=== PATIENT | female | born 1930 | race Caucasian/White ===

== ENCOUNTER 2016-12-11 14:22 | Inpatient (IN) | payer MEDICARE, OTHER ==
[~2016-12-11] VITALS: Ht 152.4 cm; Wt 63.0 kg
[2016-12-11 14:48] VITALS: BP 148/84
[2016-12-11] MEDS ORDERED: QUETIAPINE FUMA50 MG ORAL (15:01)
[2016-12-11] MEDS ORDERED: LISINOPRIL10 MG ORAL (15:01)
[2016-12-11] MEDS ORDERED: MIRTAZAPINE15 M3 ORAL (15:01)
[2016-12-11] MEDS ORDERED: CARVEDILOL25 MG ORAL (15:01)
[2016-12-11] MEDS ORDERED: SYNTHROID125 MCG ORAL (15:01)
[2016-12-11] MEDS ORDERED: LEXAPRO10 MG ORAL (15:01)
[2016-12-11] MEDS ORDERED: DIOVAN320 MG ORAL (15:01)
[2016-12-11] MEDS ORDERED: NAMENDA10 MG ORAL (15:01)
[2016-12-11] MEDS ORDERED: DONEPEZIL HCL5 MG ORAL (15:01)
[2016-12-11 15:04] LABS: BASOPHILS % (AUTO) 1.1 % (0.0-2.0); EOSINOPHILS % (AUTO) 1.2 % (0.0-3.0); LYMPHOCYTES % (AUTO) 24.4 % (20.0-45.0); MEAN CORPUSCULAR HEMOGLOBIN 28.3 PG (27.0-31.0); MEAN CORPUSCULAR HGB CONC 32.9 G/DL (32.0-36.0); MEAN CORPUSCULAR VOLUME 86 FL (80-99); MEAN PLATELET VOLUME 7.1 FL (6.5-10.1); MONOCYTES % (AUTO) 4.4 % (1.0-10.0); NEUTROPHILS % (AUTO) 68.9 % (45.0-75.0); PLATELET COUNT 269 K/UL (150-450); RED BLOOD COUNT 4.78 M/UL (4.20-5.40); WHITE BLOOD COUNT 7.9 K/UL (4.8-10.8)
--- NOTE | 2016-12-11 15:12 | Emergency Room Report ---
History of Present Illness General Chief Complaint: Pain Source: Patient, Caregiver, PMD Present Illness HPI [id number] sent by PMD DR Guardado for admission for ?encephalopathy Daughter endorses patient lives alone with 24-caregiver Doesnt sleep at night, wallks around, yelling/screaming History of frequent falls Known dementia ?anxiety Hypothyroid on synthroid Patient herself denies pain, chest pain, SOB, abd pain, headache, fever/chills Allergies: Coded Allergies: CORTISONE (Verified Allergy, Unknown, 12/11/16) LATEX (Verified Allergy, Unknown, 12/11/16) Patient History Past Medical History: dementia, other - hypothyroid Past Surgical History: none Pertinent Family History: none Social History: Denies: alcohol use, drug use, smoking Now: No Immunizations: UTD Reviewed Nursing Documentation: PMH: Agreed, PSxH: Agreed Nursing Documentation-PMH Past Medical History: No History, Except For Hx Cardiac Problems: No - HYPOTHYROIDISIM Hx Hypertension: Yes Hx Pacemaker: No - RA Hx Neurological Problems: Yes - DEMENTIA Review of Systems All Other Systems: negative except mentioned in HPI Physical Exam Vital Signs Date Time Temp Pulse Resp B/P Pulse Ox O2 Delivery O2 Flow Rate FiO2 12/11/16 14:30 98.6 76 20 135/84 96 Room Air Sp02 EP Interpretation: reviewed, normal General Appearance: normal inspection, well appearing, no apparent distress, alert, GCS 15, non-toxic, other - Well appearing elderly lady sitting upright in stretcher Head: normocephalic, atraumatic Eyes: bilateral eye EOMI, bilateral eye PERRL ENT: normal ENT inspection, hearing grossly normal, normal voice Neck: normal inspection, full range of motion, supple, no bony tend Respiratory: normal inspection, lungs clear, normal breath sounds, no respiratory distress, no retraction, no wheezing Cardiovascular #1: regular rate, rhythm, no edema Gastrointestinal: normal inspection, normal bowel sounds, non tender, soft, no guarding, no hernia Genitourinary: no CVA tenderness Musculoskeletal: normal inspection, back normal, normal range of motion, Sydnee' s Sign negative Neurologic: normal inspection, alert, oriented x3, responsive, 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 I attest that this information is true, accurate and complete to the best of my knowledge. I understand that any falsification, omission, or concealment of material fact may subject me to administrative, civil, or criminal liability. This patient warrants hospital admission for extreme of age and has a condition that cannot be treated as outpatient. Diagnostic Impression: Primary Impression: Dementia Qualified Codes: F03.90 - Unspecified dementia without behavioral disturbance Additional Impressions: UTI (urinary tract infection) Qualified Codes: N30.01 - Acute cystitis with hematuria Altered mental status Qualified Codes: R41.82 - Altered mental status, unspecified ER Course H&H stable. No leuks. No metabolic abnormalities CXR: No PNA Patient wouldnt sit for CT head UA: + for UTI IV Rocephin given in ED Possibly UTI acutely contributing to worsening baseline dementia/mental status Otherwise not systemically ill/septic or requiring additional workup currently. Endorsed to Dr Guardado for med/surg admit at 340pm EKG Diagnostic Results Rate: other - 1st degree AV block, LAFB Rhythm: NSR ST Segments: no acute changes ASA given to the pt in ED: No Rhythm Strip Diag. Results EP Interpretation: yes Rate: 88 Rhythm: NSR, no PVC's, no ectopy Chest X-Ray Diagnostic Results Chest X-Ray Diagnostic Results : Chest X-Ray Ordered: Yes # of Views/Limited/Complete: 1 View Indication: Other - weakness EP Interpretation: Yes Interpretation: no consolidation, no effusion, no pneumothorax, no acute cardiopulmonary disease Impression: No acute disease Interpreting ER Provider: Dr Sandro Mcnamara MD Last Vital Signs Date Time Temp Pulse Resp B/P Pulse Ox O2 Delivery O2 Flow Rate FiO2 12/11/16 14:48 98.6 81 18 148/84 96 Room Air Status: improved Disposition: ADMITTED INPATIENT Condition: Serious Referrals: ASH GUARDADO (PCP) SANDRO MCNAMARA M.D. Dec 11, 2016 15:12
--- NOTE | 2016-12-11 15:18 | Diagnostic Imaging Report ---
Indications: Of breath Technique: Portable AP chest Findings: Comparison: None Inspiratory effort is suboptimal. Thoracic kyphosis is exaggerated. Cardiac silhouette enlarged. Pulmonary vasculature within normal limits. Mild crowding of bronchovascular markings medial right lung base. Visualized portions of lungs and pleura are otherwise clear. Thoracic aorta calcified and elongated. Chronic appearing contour deformity right humeral head. Right glenohumeral joint narrowed with marginal osteophyte rotation. IMPRESSION: Limited exam due to technical factors described Right lung base bronchovascular prominence most likely compressive in nature. Focal infiltrate not excludable. Cardiomegaly Aortosclerosis and probable chronic hypertensive change Right glenohumeral degenerative arthropathy Chronic appearing right humeral head deformity, may be degenerative or posttraumatic Exaggerated thoracic kyphosis
[2016-12-11 15:22] LABS: TROPONIN I < 0.30 ng/mL (<=0.30)
[2016-12-11 15:25] LABS: ALANINE AMINOTRANSFERASE 11 U/L (3-33); ALBUMIN/GLOBULIN RATIO 1.3 (1.0-2.7); ANION GAP 13 (5-15); ASPARTATE AMINO TRANSFERASE 19 U/L (5-40); CARBON DIOXIDE 26 mEQ/L (20-30); CHLORIDE 100 mEQ/L (98-107); CREATININE 0.8 mg/dL (0.5-0.9); HEMOLYSIS 2; POTASSIUM 3.9 mEQ/L (3.4-4.9); SODIUM 139 mEQ/L (135-145); TOTAL PROTEIN 7.4 g/dL (6.6-8.7)
[2016-12-11 15:36] LABS: CKMB 2.4 ng/mL (< 3.8)
[2016-12-11 16:21] LABS: APPEARANCE,URINE CLEAR; KETONES,URINE NEGATIVE (NEGATIVE); LEUKOCYTE ESTERASE ,URINE 2+ (NEGATIVE); NITRITE,URINE NEGATIVE (NEGATIVE); PH,URINE 7 (4.5-8.0); PROTEIN,URINE 1+ (NEGATIVE); UROBILINOGEN,URINE NORMAL MG/DL (0.0-1.0)
[2016-12-11] MEDS ORDERED: cefTRIAXone 1 GM in D5W 55 ML IVPB ONE (16:45)
[2016-12-11 16:48] LABS: BACTERIA,URINE FEW /HPF; SQUAMOUS EPITHELIAL CELL,UR OCCASIONAL /LPF (NONE/OCC)
[2016-12-11 16:53] VITALS: BP 128/108
[2016-12-11] MEDS: Lisinopril 20mg tab ORAL SCH (19:30)
[2016-12-11 19:36] VITALS: BP 142/111
[2016-12-11] MEDS ORDERED: Haloperidol 5mg/ml Inj IVPB PRN (20:45)
[2016-12-11] MEDS ORDERED: Haloperidol Lactate 2 MG in D5W 55 ML IVPB PRN (21:00)
[2016-12-11] MEDS: Carvedilol 25mg Tab ORAL SCH (21:00)
[2016-12-11] MEDS: Donepezil 5mg Tab ORAL SCH (21:00)
[2016-12-11] MEDS: Memantine 10mg tab ORAL SCH (21:00)
[2016-12-12] VITALS (7 sets, daily range): BP systolic 134–163; BP diastolic 57–111
--- NOTE | 2016-12-12 08:10 | History & Physical ---
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
[2016-12-12] MEDS: Donepezil 5mg Tab ORAL SCH (08:45)
[2016-12-12] MEDS: Memantine 10mg tab ORAL SCH ×2 (08:45→17:29)
[2016-12-12] MEDS: Lisinopril 20mg tab ORAL SCH (08:45)
[2016-12-12] MEDS: Carvedilol 25mg Tab ORAL SCH ×2 (08:46→20:56)
[2016-12-12] MEDS: Lactobacillus-GG tablet ORAL SCH ×2 (09:00→17:30)
[2016-12-12] MEDS ORDERED: Irbesartan 150mg tablet ORAL SCH (09:00)
[2016-12-12] MEDS: ceFAZolin sod 1 GM in D5W 55 ML IVPB SCH ×2 (10:17→20:57)
--- NOTE | 2016-12-12 18:14 | Neurology Progress Note ---
Objective Physical Exam Last Vital Signs Date Time Temp Pulse Resp B/P Pulse Ox O2 Delivery O2 Flow Rate FiO2 12/12/16 15:50 97.5 86 19 144/57 Room Air 12/12/16 12:00 93 Impression/Recommendations Recommendations #[id number] TENA CADET Dec 12, 2016 18:14
--- NOTE | 2016-12-12 19:26 | Cardiology Progress Note ---
Assessment/Plan Assessment/Plan full note dicted dc avapro yoan lisinopril add lwo dose [facility] [id number] Objective Last 24 Hour Vital Signs Date Time Temp Pulse Resp B/P Pulse Ox O2 Delivery O2 Flow Rate FiO2 12/12/16 15:50 97.5 86 19 144/57 Room Air 12/12/16 12:00 98.1 78 18 143/95 93 Room Air 12/12/16 08:46 82 134/91 12/12/16 08:45 134/91 12/12/16 08:45 134/91 12/12/16 08:00 97.9 82 20 134/91 92 Room Air 12/12/16 04:15 73 152/102 12/12/16 04:00 97.8 70 20 163/101 Room Air 12/12/16 00:00 97.7 100 20 157/111 93 Room Air 12/11/16 19:36 96.5 86 20 142/111 93 Room Air Intake and Output 12/11/16 12/12/16 19:00 07:00 Intake Total 0 ml 55 ml Output Total 0 ml Balance 0 ml 55 ml Intake Oral 0 ml IV Total 55 ml Output Stool Total 0 ml # Voids 1 3 JULIANE SAUNDERS Dec 12, 2016 19:26
--- NOTE | 2016-12-12 20:01 | Wound Care Consultation ---
Wound Assessment Wound Assessment : Wound Number: #1 Wound Present on Admission: Yes New Wound: No Status Change of Wound: No Wound Location Body Site: perianal Wound Type: chemical burn Hitesh Test: Does not Hitesh Percent of Wound [place]/Red: 100 Wound Drainage Amount: None Wound Drainage Odor: None/Absent Tissue Surrounding Wound: Erythemic Wound General Appearance: Reddened Wound Comment #1 Chemical burn on perianal area Recommendation -Local wound care per protocol -Keep clean and dry -Turn and reposition -Offload both heels -Heel protector on both heels -Assess and f/u accordingly for any changes ESTER JIMÉNEZ RN Dec 12, 2016 20:01
[2016-12-12] MEDS ORDERED: Tubing IV Secondary IV ONE (22:20)
[2016-12-12] MEDS ORDERED: NS 275ml ONE (22:20)
[2016-12-13] VITALS: BP 125/82
--- NOTE | 2016-12-13 | Consultation ---
DATE OF CONSULTATION: 12/12/2016 CARDIOLOGY CONSULTATION CONSULTING PHYSICIAN: Olegario Solomon M.D. REFERRING PHYSICIAN: Efrain Guardado M.D. HISTORY OF PRESENT ILLNESS: This is an elderly female with history of several medical problems, who was admitted to the hospital because of agitation. According to the emergency room physician's note, the patient was noted to have possibly some encephalopathy. Daughter indicated that the patient lives alone with 24-hour care. She does not sleep at night, walks around apparently yelling and screaming. She has a history of frequent falls, unknown dementia, and questionable anxiety. The patient is admitted to the hospital. She does not really have any chest pain or shortness of breath. On questioning, she denies any palpitations or dizziness at this time. However, it is not clear to me how much what she states is actually trustable for accuracy. PAST MEDICAL HISTORY: Her past medical history according to [facility] records includes history of CVA, hypothyroidism, encephalopathy, hypertension, osteoarthritis, lymphedema, tremor, hemorrhagic cerebral hemisphere, agitation, and moderate vascular neoplasm disorder. FAMILY HISTORY: One daughter, healthy. Three sons, one is obese. ALLERGIES: None. REVIEW OF SYSTEMS: Gastrointestinal: She denies. Genitourinary: She denies. Pulmonary: She denies. Constitutional: She denies. Neurological: She denies. PHYSICAL EXAMINATION: VITAL SIGNS: Blood pressure is 152/102 down to 144/57, temperature is 97.5, and heart rate is 96. GENERAL: Physical examination shows her to be an elderly female, in no respiratory distress. She is awake and responsive. She has some twitching in the left eye. NECK: Supple. LUNGS: Clear to auscultation and percussion. CARDIAC: S1 is normal. S2 is normal. Regular rate and rhythm. No heaves, thrills, or gallops noted. ABDOMEN: Soft and nontender. Positive bowel sounds. EXTREMITIES: There is no clubbing, cyanosis, or edema. NEUROLOGIC: She is awake, alert, responsive. At the moment, she is not agitated. LABORATORY AND DIAGNOSTIC DATA: White count 7.9, hemoglobin 13.5, and platelet count 269,000. Sodium is 139, potassium 3.9, chloride 100, bicarbonate 26, BUN 20, creatinine is 0.8, and glucose of 148. Troponin less than 0.3. TSH of 1.4. Urinalysis 2 to 4 RBCs, 2 to 4 WBCs, and 2+ leukocyte esterase. Imaging included a chest x-ray that shows right lung base bronchovascular prominence, likely compressive atelectasis, focal infiltrate not excluded; cardiomegaly; chronic glenohumeral degenerative arthropathy; and chronic appearing right humeral head deformity. ASSESSMENT AND PLAN: 1. Hypertension. 2. Dementia. 3. Delirium. 4. History of cerebrovascular accident with intracranial bleeding previously. Dr. Guardado, this patient was seen in cardiac consultation. The patient's blood pressure a bit on the on high side. She is getting Coreg 12.5 mg twice daily and Avapro 300 mg daily. Lisinopril was also added, although the combination of Avapro and lisinopril probably not supported. We will start the patient on some amlodipine instead of Avapro and add increasing doses as become necessary. She appears to be calm for the time being. Olegario Solomon M.D. DR: QUINCY JOB#: [id number] CC:
--- NOTE | 2016-12-13 02:15 | Consultation ---
DATE OF CONSULTATION: 12/12/2016 NEUROLOGICAL CONSULTATION REQUESTING PHYSICIAN: Efrain Guardado M.D. HISTORY OF PRESENT ILLNESS: The patient is an 86-year-old female seen in neurological consultation to evaluate progressive changes in mental status. Apparently, the patient has a history of preexistent dementia, now presenting with increasing confusion and disorientation. The patient was unable to provide with any history. This was compiled from medical records. Note that the patient lives at home in apartment where she has a 24-hour caregiver. She became increasingly restless, agitated, yelling, screaming with insomnia, walking around at nighttime. Her gait became quite unstable. She has frequent falls. Following admission, vital signs remained stable. She was afebrile. Her chest x-ray revealed no acute abnormality. CAT scan was attempted, but the patient was not cooperative. Lab work included normal electrolyte panel including normal TSH and troponin. Urinalysis with 2+ leukocyte esterase and 1+ protein. Her chest x-ray, limited examination, right lung base bronchovascular prominence, cardiomegaly, atherosclerosis, and probably chronic hypertensive changes, right glenohumeral degenerative arthropathy noted, and thoracic scoliosis. According to treating physician, the patient has a previous stroke including hemorrhagic strokes, treated for hypertension, dementia, degenerative joint disease, hyperlipidemia, and hypothyroidism. Following admission to [facility], there was no evidence of paroxysmal activity. The patient remained in bed with a sitter being present, reported to aid well. She stays still with no evidence of agitation, although last night she was described as restless and confused. MEDICATIONS: Treatment prior to admission included donepezil 5 mg daily, Carvedilol, Lexapro 10 mg, Synthroid, lisinopril, Namenda 10 mg b.i.d., Remeron at bedtime, quetiapine 25 mg t.i.d., and valsartan. ALLERGIES: Cortisone and . SOCIAL HISTORY: Lives at home with a caregiver. FAMILY HISTORY: Noncontributory. REVIEW OF SYSTEMS: Unable to obtain due to the patient's status, who was quite confused. PHYSICAL EXAMINATION: GENERAL: The patient is a well-developed and well-nourished female, not in acute distress, lying comfortably in bed. HEENT: Head, normocephalic. There are posttraumatic scars in the right frontal region. Left eye corneal cloudiness. NECK: Rigid in all directions. MUSCULOSKELETAL: Puffiness in both hands and feet. Arthritic changes in both knees. Peripheral pulses 1+ symmetric. MENTAL STATUS: On admission, . Denies having chest pains, shortness of breath, or abdominal pain. No headache. No fever or chills. Currently, she is fully awake, follows commands, yes and no, gave her name but not the address or place. CRANIAL NERVE II: Pupils are 3 mm responding to light and accommodation. Extraocular movement full range. CRANIAL NERVE V: Normal corneal responses. CRANIAL NERVE VII: Slight droop, left nasolabial fold. CRANIAL NERVE VIII: Decreased hearing. CRANIAL NERVE IX THROUGH XII: Tongue is in midline. Normal gag response. MOTOR EXAMINATION: Diffuse rigidity in both upper and lower extremities. Resisting with a good strength. Deep tendon reflexes depressed bilaterally. Plantar response is mute. SENSORY EXAMINATION: Withdrawing to pin stimulation, both upper and lower extremities. Gait not tested. IMPRESSION: 1. This is an 86-year-old female with extensive cerebrovascular disease, multiple strokes presenting with vascular dementia with behavioral abnormalities. 2. Hypertension. 3. Hypothyroidism. 4. Urinary tract infection. RECOMMENDATION: Continue with the current regimen including IV fluids and antibiotics, hydration. Use sedatives as per Psychiatry including Seroquel. She is on Synthroid and also Namenda with Aricept and antidepressants, Remeron and Lexapro, and p.r.n. Haldol. Continue with the current treatment including aspirin and statins. Get a geriatric psychiatry evaluation to adjust psychotropics properly. Encourage the patient sitting in a chair. PT and OT for mobility protocol. Ruel Justin M.D. DR: TONY JOB#: [id number] CC:
[2016-12-13 07:58] VITALS: BP 120/83
[2016-12-13] MEDS: Lisinopril 20mg tab ORAL SCH (08:51)
[2016-12-13] MEDS: Memantine 10mg tab ORAL SCH ×2 (08:51→17:29)
[2016-12-13] MEDS: Carvedilol 25mg Tab ORAL SCH ×2 (08:51→20:27)
[2016-12-13] MEDS: Lactobacillus-GG tablet ORAL SCH ×2 (08:51→17:29)
[2016-12-13] MEDS: Donepezil 5mg Tab ORAL SCH (08:51)
[2016-12-13] MEDS: ceFAZolin sod 1 GM in D5W 55 ML IVPB SCH ×2 (09:02→22:49)
[2016-12-13] MEDS ORDERED: NS 550ML IV ONE (09:25)
--- NOTE | 2016-12-13 11:00 | Cardiology Progress Note ---
Assessment/Plan Assessment/Plan 1. Hypertension. 2. Dementia. 3. Delirium. 4. History of ich calm now but agitated earlier per staff tried to get out of bed removed iv bp seem fine watch off avapro on lisinopril adn norvasc Subjective Cardiovascular: Denies: chest pain, lightheadedness, palpitations Gastrointestinal/Abdominal: Denies: nausea Genitourinary: Denies: burning Objective Last 24 Hour Vital Signs Date Time Temp Pulse Resp B/P Pulse Ox O2 Delivery O2 Flow Rate FiO2 12/13/16 08:51 84 120/83 12/13/16 08:51 120/83 12/13/16 08:51 84 120/83 12/13/16 07:58 98.2 84 19 120/83 92 Room Air 12/13/16 00:00 98.2 89 18 125/82 97 Room Air 12/12/16 21:00 97.9 89 18 140/92 93 Room Air 12/12/16 20:56 89 140/92 12/12/16 15:50 97.5 86 19 144/57 Room Air 12/12/16 12:00 98.1 78 18 143/95 93 Room Air General Appearance: alert Neck: no JVD Rhythm: NSR Cardiovascular: normal rate, regular rhythm Respiratory/Chest: lungs clear Abdomen: normal bowel sounds, non tender Extremities: no swelling Intake and Output 12/12/16 12/13/16 19:00 07:00 Intake Total 180 ml Balance 180 ml Intake Oral 180 ml # Voids 3 NICKYJULIANE Dec 13, 2016 11:00
[2016-12-13 11:39] VITALS: BP 124/96
[2016-12-13 15:43] VITALS: BP 131/80
--- NOTE | 2016-12-13 16:37 | Consultation ---
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 the pt is on 1:1. the pt is pw waxing and waning of conciousness the pt has been agitated. the pt was unable to provide hx Allergies: Coded Allergies: CORTISONE (Verified Allergy, Unknown, 12/11/16) LATEX (Verified Allergy, Unknown, 12/11/16) Medication History Scheduled Carvedilol* (Carvedilol*), 25 MG ORAL EVERY 12 HOURS, (Reported) Donepezil Hcl* (Donepezil Hcl*), 5 MG ORAL DAILY, (Reported) Escitalopram Oxalate* (Lexapro*), 10 MG ORAL DAILY, (Reported) Levothyroxine Sodium* (Synthroid*), 137 MCG ORAL DAILY, (Reported) Lisinopril* (Lisinopril*), 20 MG ORAL DAILY, (Reported) Memantine Hcl* (Namenda*), 10 MG ORAL BID, (Reported) Mirtazapine* (Mirtazapine*), 30 MG ORAL BEDTIME, (Reported) Quetiapine Fumarate* (Quetiapine Fumarate*), 25 MG ORAL TID, (Reported) Valsartan (Diovan), 320 MG ORAL DAILY, (Reported) Patient History History Provided By: Patient, Medical Record, PMD Healthcare decision maker Resuscitation status Full Code Advanced Directive on File Past Medical/Surgical History Past Medical/Surgical History: (1) Acute encephalopathy (2) UTI (urinary tract infection) (3) Dementia (4) Altered mental status Review of Systems Psychiatric: Reports: anxiety, depressed feelings, emotional problems, prior hx Physical Exam General Appearance: alert, confused Neurologic: disoriented, unresponsiveness, depressed affect Last 24 Hour Vital Signs Date Time Temp Pulse Resp B/P Pulse Ox O2 Delivery O2 Flow Rate FiO2 12/13/16 15:43 98.1 79 18 131/80 92 Room Air 12/13/16 11:39 98.2 84 18 124/96 93 Room Air 12/13/16 08:51 84 120/83 12/13/16 08:51 120/83 12/13/16 08:51 84 120/83 12/13/16 07:58 98.2 84 19 120/83 92 Room Air 12/13/16 00:00 98.2 89 18 125/82 97 Room Air 12/12/16 21:00 97.9 89 18 140/92 93 Room Air 12/12/16 20:56 89 140/92 Intake and Output 12/12/16 12/13/16 19:00 07:00 Intake Total 180 ml Balance 180 ml Intake Oral 180 ml # Voids 3 Height (Feet): 5 Weight (Pounds): 139 Medications Current Medications Medications (Trade) Dose Ordered Sig/Smith Route PRN Reason Start Time Stop Time Status Last Admin Dose Admin Acetaminophen (Tylenol) 650 mg Q4H PRN ORAL Mild Pain 12/11/16 18:45 01/10/17 18:44 Amlodipine Besylate (Norvasc) 2.5 mg DAILY ORAL 12/13/16 09:00 01/12/17 08:59 12/13/16 08:51 Carvedilol (Coreg) 25 mg EVERY 12 HOURS ORAL 12/11/16 21:00 01/10/17 20:59 12/13/16 08:51 Cefazolin Sodium/ Dextrose (Ancef/D5W) 55 ml @ 110 mls/hr Q12HR@1000,2200 IVPB 12/12/16 10:00 12/19/16 09:59 12/13/16 09:02 Clotrimazole (Lotrimin) 1 applic EVERY 12 HOURS TOPIC 12/12/16 21:30 01/11/17 21:29 12/13/16 08:52 Donepezil HCl (Aricept) 5 mg DAILY ORAL 12/11/16 21:00 01/10/17 20:59 12/13/16 08:51 Escitalopram Oxalate (Lexapro) 10 mg DAILY ORAL 12/12/16 09:00 01/11/17 08:59 12/13/16 08:51 Lactobacillus Acidophilus (Culturelle) 1 tab TWICE A DAY ORAL 12/12/16 09:00 01/11/17 08:59 12/13/16 08:51 Levothyroxine Sodium (Synthroid) 50 mcg ACBREAKFAST ORAL 12/12/16 06:30 01/11/17 06:29 12/13/16 06:04 Levothyroxine Sodium 88 mcg 88 mcg ACBREAKFAST ORAL 12/12/16 06:30 01/11/17 06:29 12/13/16 06:04 Lisinopril (Prinivil) 20 mg DAILY ORAL 12/11/16 19:00 01/10/17 18:59 12/13/16 08:51 Memantine (Namenda) 10 mg BID ORAL 12/11/16 21:00 01/10/17 20:59 12/13/16 08:51 Mirtazapine (Remeron) 30 mg BEDTIME ORAL 12/11/16 21:00 01/10/17 20:59 12/12/16 20:56 Quetiapine Fumarate (SEROquel) 25 mg TID ORAL 12/11/16 21:00 01/10/17 20:59 12/13/16 13:20 Assessment/Plan Status Narrative Deliruim -seroquel 12.5 tid lexapro VeroniqueqMuna Barreto M.D. Dec 13, 2016 16:37
--- NOTE | 2016-12-13 17:02 | General Progress Note ---
Assessment/Plan Status Narrative delirium encepahlopahty pyuria hypertenison lymphedema deg disc disease dementia plan antibioti c dc plannign to [facility] not home. [place]. Subjective Date patient seen: Dec 13, 2016 Time patient seen: 17:01 Constitutional: Reports: no symptoms HEENT: Reports: no symptoms Cardiovascular: Reports: no symptoms Respiratory: Reports: no symptoms Allergies: Coded Allergies: CORTISONE (Verified Allergy, Unknown, 12/11/16) LATEX (Verified Allergy, Unknown, 12/11/16) Objective Last 24 Hour Vital Signs Date Time Temp Pulse Resp B/P Pulse Ox O2 Delivery O2 Flow Rate FiO2 12/13/16 15:43 98.1 79 18 131/80 92 Room Air 12/13/16 11:39 98.2 84 18 124/96 93 Room Air 12/13/16 08:51 84 120/83 12/13/16 08:51 120/83 12/13/16 08:51 84 120/83 12/13/16 07:58 98.2 84 19 120/83 92 Room Air 12/13/16 00:00 98.2 89 18 125/82 97 Room Air 12/12/16 21:00 97.9 89 18 140/92 93 Room Air 12/12/16 20:56 89 140/92 Intake and Output 12/12/16 12/13/16 19:00 07:00 Intake Total 180 ml Balance 180 ml Intake Oral 180 ml # Voids 3 Height (Feet): 5 Weight (Pounds): 139 General Appearance: WD/WN Neck: supple Cardiovascular: normal rate, regular rhythm, no JVD Respiratory/Chest: lungs clear Abdomen: soft ASH POE Dec 13, 2016 17:02
[2016-12-13 20:00] VITALS: BP 107/61
--- NOTE | 2016-12-13 21:30 | Progress Note ---
DATE: 12/13/2016 SUBJECTIVE: The patient is doing well. No behavior issues. The patient is calm and cooperative. The patient is still confused, disoriented, presenting waxing and waning consciousness. MENTAL STATUS EXAMINATION: The patient is confused, disoriented. Mood is neutral. Affect is flat. Congruent with mood. Thought processes, there is a paucity of thought content. Cognition is impaired. ASSESSMENT: Delirium due to general medical condition. PLAN: 1. The patient will be continued with Seroquel. We will decrease it to 12.5 mg twice a day. 2. We will continue to follow and readjust the medications. Muna Manriquez M.D. DR: CHETNA JOB#: [id number] CC:
[2016-12-13 23:54] VITALS: BP 118/80
[2016-12-14 04:00] VITALS: BP 141/82
[2016-12-14 08:09] VITALS: BP 114/64
[2016-12-14] MEDS: Carvedilol 25mg Tab ORAL SCH ×2 (08:11→20:47)
[2016-12-14] MEDS: Donepezil 5mg Tab ORAL SCH (08:11)
[2016-12-14] MEDS: Lisinopril 20mg tab ORAL SCH (08:12)
[2016-12-14] MEDS: Memantine 10mg tab ORAL SCH ×2 (08:13→17:23)
[2016-12-14] MEDS: Lactobacillus-GG tablet ORAL SCH ×2 (08:13→17:23)
[2016-12-14] MEDS: ceFAZolin sod 1 GM in D5W 55 ML IVPB SCH ×2 (09:40→22:12)
--- NOTE | 2016-12-14 09:48 | Cardiology Progress Note ---
Assessment/Plan Assessment/Plan 1. Hypertension. 2. Dementia. 3. Delirium. 4. History of ich calm now but agitated earlier per staff tried to get out of bed removed iv bp seem fine off avapro on lisinopril sanjana das dc palnnign per dr che agree with snf Subjective Cardiovascular: Denies: chest pain, lightheadedness Respiratory: Denies: shortness of breath Gastrointestinal/Abdominal: Denies: abdominal pain Genitourinary: Denies: burning Objective Last 24 Hour Vital Signs Date Time Temp Pulse Resp B/P Pulse Ox O2 Delivery O2 Flow Rate FiO2 12/14/16 08:12 70 114/64 12/14/16 08:12 114/64 12/14/16 08:11 70 114/64 12/14/16 08:09 97.9 70 18 114/64 95 Room Air 12/14/16 04:00 97.5 97 18 141/82 92 Room Air 12/13/16 23:54 98.1 85 18 118/80 93 Room Air 12/13/16 20:27 87 107/61 12/13/16 20:00 98.2 87 18 107/61 91 Room Air 12/13/16 15:43 98.1 79 18 131/80 92 Room Air 12/13/16 11:39 98.2 84 18 124/96 93 Room Air General Appearance: no apparent distress Cardiovascular: normal rate, regular rhythm Respiratory/Chest: lungs clear, normal breath sounds Abdomen: non tender, soft Extremities: no swelling Intake and Output 12/13/16 12/14/16 19:00 07:00 Intake Total 110 ml 390 ml Balance 110 ml 390 ml Intake Oral 280 ml IV Total 110 ml 110 ml # Voids 3 JULIANE SAUNDERS Dec 14, 2016 09:48
[2016-12-14 12:02] VITALS: BP 128/66
[2016-12-14] MEDS ORDERED: Tubing IV Secondary IV ONE (15:02)
[2016-12-14] MEDS ORDERED: NS 275ml ONE (15:02)
[2016-12-14 16:00] VITALS: BP 146/95
--- NOTE | 2016-12-14 17:20 | Cardiology Report ---
APPROVED REPORT EKG Measurement Heart [id number] Sinus rhythm with marked sinus arrhythmia with 1st degree AV block Pulmonary disease pattern Left anterior fascicular block Minimal voltage criteria for LVH, may be normal variant Abnormal ECG
--- NOTE | 2016-12-14 17:56 | General Progress Note ---
Assessment/Plan Status Narrative pyuria urin3 culture was not send uti on ancef doign well plan dc to [facility]. Subjective Date patient seen: Dec 14, 2016 Constitutional: Reports: no symptoms HEENT: Reports: no symptoms Allergies: Coded Allergies: CORTISONE (Verified Allergy, Unknown, 12/11/16) LATEX (Verified Allergy, Unknown, 12/11/16) Objective Last 24 Hour Vital Signs Date Time Temp Pulse Resp B/P Pulse Ox O2 Delivery O2 Flow Rate FiO2 12/14/16 16:00 97.7 75 18 146/95 96 Room Air 12/14/16 12:02 97.7 79 18 128/66 94 Room Air 12/14/16 08:12 70 114/64 12/14/16 08:12 114/64 12/14/16 08:11 70 114/64 12/14/16 08:09 97.9 70 18 114/64 95 Room Air 12/14/16 04:00 97.5 97 18 141/82 92 Room Air 12/13/16 23:54 98.1 85 18 118/80 93 Room Air 12/13/16 20:27 87 107/61 12/13/16 20:00 98.2 87 18 107/61 91 Room Air Intake and Output 12/13/16 12/14/16 19:00 07:00 Intake Total 110 ml 390 ml Balance 110 ml 390 ml Intake Oral 280 ml IV Total 110 ml 110 ml # Voids 3 Height (Feet): 5 Weight (Pounds): 139 General Appearance: WD/WN Neck: non-tender Cardiovascular: normal rate, regular rhythm, no JVD Respiratory/Chest: lungs clear Abdomen: soft ASH POE Dec 14, 2016 17:56
--- NOTE | 2016-12-14 18:54 | Geriatric Progress Note ---
Assessment/Plan Assessment/Plan stable -no changes Discussed with: patient Subjective Mood/Memory: Reports: anxiety, depressed feelings, emotional problems Sleep: Reports: sleeps well Geriatric Geriatric Last 24 Hour Vital Signs Date Time Temp Pulse Resp B/P Pulse Ox O2 Delivery O2 Flow Rate FiO2 12/14/16 16:00 97.7 75 18 146/95 96 Room Air 12/14/16 12:02 97.7 79 18 128/66 94 Room Air 12/14/16 08:12 70 114/64 12/14/16 08:12 114/64 12/14/16 08:11 70 114/64 12/14/16 08:09 97.9 70 18 114/64 95 Room Air 12/14/16 04:00 97.5 97 18 141/82 92 Room Air 12/13/16 23:54 98.1 85 18 118/80 93 Room Air 12/13/16 20:27 87 107/61 12/13/16 20:00 98.2 87 18 107/61 91 Room Air Intake and Output 12/13/16 12/14/16 19:00 07:00 Intake Total 110 ml 390 ml Balance 110 ml 390 ml Intake Oral 280 ml IV Total 110 ml 110 ml # Voids 3 Current Medications Medications (Trade) Dose Ordered Sig/Smith Route PRN Reason Start Time Stop Time Status Last Admin Dose Admin Acetaminophen (Tylenol) 650 mg Q4H PRN ORAL Mild Pain 12/11/16 18:45 01/10/17 18:44 Amlodipine Besylate (Norvasc) 2.5 mg DAILY ORAL 12/13/16 09:00 01/12/17 08:59 12/14/16 08:12 Carvedilol (Coreg) 25 mg EVERY 12 HOURS ORAL 12/11/16 21:00 01/10/17 20:59 12/14/16 08:11 Cefazolin Sodium/ Dextrose (Ancef/D5W) 55 ml @ 110 mls/hr Q12HR@1000,2200 IVPB 12/12/16 10:00 12/19/16 09:59 12/14/16 09:40 Clotrimazole (Lotrimin) 1 applic EVERY 12 HOURS TOPIC 12/12/16 21:30 01/11/17 21:29 12/14/16 08:13 Donepezil HCl (Aricept) 5 mg DAILY ORAL 12/11/16 21:00 01/10/17 20:59 12/14/16 08:11 Escitalopram Oxalate (Lexapro) 10 mg DAILY ORAL 12/12/16 09:00 01/11/17 08:59 12/14/16 08:12 Lactobacillus Acidophilus (Culturelle) 1 tab TWICE A DAY ORAL 12/12/16 09:00 01/11/17 08:59 12/14/16 17:23 Levothyroxine Sodium (Synthroid) 50 mcg ACBREAKFAST ORAL 12/12/16 06:30 01/11/17 06:29 12/14/16 05:55 Levothyroxine Sodium 88 mcg 88 mcg ACBREAKFAST ORAL 12/12/16 06:30 01/11/17 06:29 12/14/16 05:54 Lisinopril (Prinivil) 20 mg DAILY ORAL 12/11/16 19:00 01/10/17 18:59 12/14/16 08:12 Memantine (Namenda) 10 mg BID ORAL 12/11/16 21:00 01/10/17 20:59 12/14/16 17:23 Mirtazapine (Remeron) 30 mg BEDTIME ORAL 12/11/16 21:00 01/10/17 20:59 12/13/16 20:27 Quetiapine Fumarate (SEROquel) 12.5 mg TID ORAL 12/13/16 18:00 01/12/17 17:59 12/14/16 17:23 Height (Feet): 5 Weight (Pounds): 139 General Appearance: well groomed, no apparent distress, mild distress, thin Psychiatric Behavior: uncooperative Orientation: disoriented Affect: flat Muna Manriquez M.D. Dec 14, 2016 18:54
[2016-12-14 20:00] VITALS: BP 152/92
[2016-12-15] VITALS: BP 145/77
[2016-12-15 04:01] VITALS: BP 142/93
[2016-12-15 08:05] VITALS: BP 137/95
[2016-12-15] MEDS: Donepezil 5mg Tab ORAL SCH (08:19)
[2016-12-15] MEDS: Memantine 10mg tab ORAL SCH ×2 (08:20→18:51)
[2016-12-15] MEDS: Lisinopril 20mg tab ORAL SCH (08:20)
[2016-12-15] MEDS: Carvedilol 25mg Tab ORAL SCH (08:20)
[2016-12-15] MEDS: Lactobacillus-GG tablet ORAL SCH ×2 (08:21→18:51)
[2016-12-15] MEDS: ceFAZolin sod 1 GM in D5W 55 ML IVPB SCH (09:36)
[2016-12-15 12:22] VITALS: BP 142/80
[2016-12-15 16:00] VITALS: BP 125/77
[2016-12-15] MEDS ORDERED: ACETAMINOPHEN325 M1 ORAL (18:45)
[2016-12-15] MEDS ORDERED: NORVASC2.5 MG ORAL (18:46)
[2016-12-15] MEDS ORDERED: COREG25 MG ORAL (18:46)
[2016-12-15] MEDS ORDERED: SYNTHROID25 MCG ORAL (18:48)
[2016-12-15] MEDS ORDERED: SYNTHROID88 MCG ORAL (18:48)
[2016-12-15] MEDS ORDERED: CULTURELLE1 EACH ORAL (18:48)
[2016-12-15] MEDS ORDERED: LISINOPRIL20 MG ORAL (18:49)
[2016-12-15] MEDS ORDERED: QUETIAPINE FUMA25 MG ORAL (18:50)
--- NOTE | 2016-12-15 21:00 | Progress Note ---
DATE: 12/15/2016 SUBJECTIVE: The patient is stable at baseline. The patient's waxing and waning of consciousness improved. She is less agitated. She knew her name and she knows she is in the hospital. She actually has been eating. The son was in the room today and assist her with feeding. The patient is calmer and more stable. MENTAL STATUS EXAMINATION: The patient is alert and oriented to times self and place. Mood is neutral. Affect is constricted. Congruent with mood. There is a paucity of thought content. Thought content, no suicidal or homicidal ideation. Cognition is impaired. ASSESSMENT: 1. Delirium, resolved. 2. Dementia. PLAN: 1. The patient is on Seroquel. 2. We will continue follow and readjust the medications. Muna Manriquez M.D. DR: COREEN JOB#: [id number] CC:
--- NOTE | 2016-12-16 14:18 | Discharge Summary ---
Discharge Summary Hospital Course Date of Admission Dec 11, 2016 at 15:10 Date of Discharge Dec 15, 2016 at 19:00 Admitting Diagnosis encephalopathy WANG Smith is a 86 year old female who was admitted on Dec 11, 2016 at 15 :10 for Encephalopathy Hospital Course dc summary #[id number] Discharge Medications Continued Medications: Acetaminophen* (Acetaminophen 325MG Tablet*) 325 Mg Tablet 650 MG ORAL Q4H PRN for For Pain, TAB Amlodipine Besylate (Norvasc) 2.5 Mg Tablet 2.5 MG ORAL DAILY, TAB Carvedilol (Coreg) 25 Mg Tablet 25 MG ORAL EVERY 12 HOURS, TAB Donepezil Hcl* (Donepezil Hcl*) 5 Mg Tablet 5 MG ORAL DAILY, TAB Escitalopram Oxalate* (Lexapro*) 10 Mg Tablet 10 MG ORAL DAILY, TAB Lactobacillus Rhamnosus Gg* (Culturelle*) 1 Each Capsule 1 CAP ORAL BID, CAP Levothyroxine Sodium* (Synthroid*) 25 Mcg Tablet 50 MCG ORAL ACBREAKFAST, TAB Take in the morning on an empty stomach, at least 30 minutes before food. Levothyroxine Sodium* (Synthroid*) 88 Mcg Tablet 88 MCG ORAL ACBREAKFAST, TAB Take in the morning on an empty stomach, at least 30 minutes before food. Lisinopril (Lisinopril*) 20 Mg Tablet 20 MG ORAL DAILY, TAB Memantine Hcl* (Namenda*) 10 Mg Tablet 10 MG ORAL BID, TAB Mirtazapine* (Mirtazapine*) 15 Mg Tablet 30 MG ORAL BEDTIME, TAB Quetiapine Fumarate* (Seroquel*) 25 Mg Tablet 12.5 MG ORAL TID, TAB Discharge Condition Upon Discharge: stable Discharge Disposition Patient was discharged to SNF Discharge Diagnoses: Discharge Instructions Discharge Instructions Special Instructions I have been assigned to complete a D/C Summary on this account. I was not involved in the patient management Elizabeth Chamorro NP (Vanchtein) Dec 16, 2016 14:18
--- NOTE | 2016-12-17 16:01 | Discharge Summary 2 SIG ---
DATE OF ADMISSION: 12/11/2016 DATE OF DISCHARGE: 12/15/2016 REASON FOR ADMISSION: 86-year-old female with a history of hypertension, dementia, hyperlipidemia, degenerative disk disease, history of CVA with intracranial hemorrhage, osteoarthritis was sent to emergency room for evaluation due to altered mental status. The patient lived alone with a 24- hour caregiver. The patient did not sleep at night. She walked around, yelling and screaming. The caregiver reported frequent falls. In the emergency room, vital signs were stable. CT of the head revealed no acute intracranial pathology. EKG revealed normal sinus rhythm with first-degree AV block and LAFB. Chest x-ray revealed no acute cardiopulmonary disease. No leukocytosis. Stable hemoglobin and hematocrit. Troponin negative. Urinalysis with evidence of pyuria and few bacteria. The patient admitted for further management. ADMITTING DIAGNOSES: 1. Altered mental status. 2. Urinary tract infection. 3. Hypertension. 4. History of cerebrovascular accident with intracranial hemorrhage. 5. Hypothyroidism. HOSPITAL COURSE: Cardiology, Neurology, and Psychiatric evaluations were requested. Anatomical Embalmer seen and evaluated the patient, titrated antihypertensive medications regimen. Blood pressure controlled. Neurologist concluded that the patient had extensive cerebrovascular disease with vascular dementia with behavioral changes. Recommended continue Aricept and Namenda. Continue antidepressant. Mobilize the patient with PT and OT, maintain fall precaution, and followup with recommendation by psychiatrist. Psychiatrist seen and evaluated the patient, concluded that the patient had delirium due to general medical condition. Psychiatrist optimized psychiatric medication regimen. TSH within normal limits. Continue current dose of Synthroid. T The patient's behavior appropriate, mood stable. Urine culture was not obtained since the patient was incontinent and unable to perform in and out catheterization early in the treatment due to anxiety. The patient is status post empiric treatment for UTI. Transfer was arranged to [facility]. Family agreed with transfer. The patient was stable for transfer to SNF. DISCHARGE DIAGNOSES: 1. Acute encephalopathy on chronic underlying vascular dementia likely secondary to infection. 2. Urinary tract infection, status post treatment. 3. Extensive cerebrovascular disease. 4. Vascular dementia with behavioral changes. 5. Delirium. 6. Hypertension. 7. History of cerebrovascular accident with intracranial hemorrhage. 8. Hypothyroidism. DISCHARGE MEDICATIONS: See medication reconciliation list. DISCHARGE INSTRUCTIONS: The patient was discharged to [facility]. FOLLOWUP: Followup with medical doctor at the facility. Efrain Guardado M.D. I have been assigned to dictate discharge summary on this account and I was not involved in the patient's management. Elizabeth Chamorro (Vanchtein) N.PCarmen DR: CLEMENTINA JOB#: [id number] CC: [id number]
== END 2016-12-15 19:00 | DRG 689 ==
LOC: EMR 14:40 → EDBEDREQ 14:51 → 4W 15:10 → EDBEDREQ 15:42
DX: N39.0 Urinary tract infection, site not specified (principal); G93.40 Encephalopathy, unspecified; F01.51 Vascular dementia, unspecified severity, with behavioral disturbance; I10 Essential (primary) hypertension; E03.9 Hypothyroidism, unspecified; E78.5 Hyperlipidemia, unspecified; M17.9 Osteoarthritis of knee, unspecified; F41.9 Anxiety disorder, unspecified; Z91.81 History of falling; Z86.73 Personal history of transient ischemic attack (TIA), and cerebral infarction without residual deficits
CPT/HCPCS: 36415; 71010; 80053; 81003; 82550; 82553; 84443; 84484; 85025; 93005; 99285